=== PATIENT | female | born 1985 | race Caucasian/White ===

== ENCOUNTER 2016-09-01 10:03 | Emergency (ER) | payer MEDICAID ==
[~2016-09-01] VITALS: Ht 157.5 cm; Wt 77.6 kg
[2016-09-01 10:05] VITALS: BP 103/73
== END 2016-09-01 11:51 | disposition home or self-care (01) ==
LOC: ED 11:40
DX: L03.116 Cellulitis of left lower limb (principal); H00.014 Hordeolum externum left upper eyelid; F17.210 Nicotine dependence, cigarettes, uncomplicated
CPT/HCPCS: 99283